=== PATIENT | female | born 1995 | race Caucasian/White ===

== ENCOUNTER 2017-09-18 15:38 | Emergency (ER) | payer BC ==
--- NOTE | 2017-09-18 15:55 | EDM.PDOC ---
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, here in the ed it was 98.0, BP 135.87 Pulse 104 RR 17 Pulse ox 100% on RA Onset: Sudden Onset Date: 09/16/17 Onset Time: 06:00 Duration: Day(s):, Intermittent Location: Reports: Generalized Quality: Reports: Ache, Same as Previous Episode Severity: Moderate Improves with: Reports: Medication Context: Reports: Sick Contact Associated Symptoms: Reports: Nausea/Vomiting head Pain Score (Numeric/FACES): 3 - Related Data Allergies Allergy/AdvReac Type Severity Reaction Status Date / Time No Known Allergies Allergy Verified 09/18/17 16:06 Home Meds: Home Meds Omeprazole 40 mg PO DAILY 09/18/17 [History] ED ROS GENERAL - Review of Systems Review Of Systems: See Below Constitutional: Reports: Decreased Appetite HEENT: Reports: No Symptoms Respiratory: Reports: No Symptoms Cardiovascular: Reports: No Symptoms Endocrine: Reports: No Symptoms GI/Abdominal: Reports: No Symptoms : Reports: No Symptoms Musculoskeletal: Reports: Muscle Pain (generalized) Skin: Reports: No Symptoms Neurological: Reports: No Symptoms Psychiatric: Reports: No Symptoms ED EXAM, GENERAL - Physical Exam Exam: See Below Exam Limited By: No Limitations General Appearance: Alert, WD/WN, No Apparent Distress Eye Exam: Bilateral Eye: Normal Inspection Ears: Normal External Exam, Normal Canal Ear Exam: Bilateral Ear: Auricle Normal Nose: Normal Inspection, Normal Mucosa Throat/Mouth: Normal Inspection, Normal Lips, Normal Teeth Head: Atraumatic, Normocephalic Neck: Normal Inspection, Supple, Non-Tender, Full Range of Motion Respiratory/Chest: No Respiratory Distress, Lungs Clear, Normal Breath Sounds Cardiovascular: Normal Peripheral Pulses, Regular Rate, Rhythm, No Edema, No Gallop, No JVD, No Murmur, No Rub Peripheral Pulses: 1+: Radial (R) GI/Abdominal: Normal Bowel Sounds, Soft, Non-Tender, No Organomegaly (Female) Exam: Deferred Rectal (Female) Exam: Deferred Back Exam: Normal Inspection, Full Range of Motion Extremities: Normal Inspection, Normal Range of Motion, Non-Tender, No Pedal Edema Neurological: Alert, Oriented, CN II-XII Intact, Normal Cognition, Normal Gait Psychiatric: Normal Affect, Normal Mood Skin Exam: Warm, Dry, Intact, Normal Color, No Rash Lymphatic: No Adenopathy Course - Vital Signs Text/Narrative:: 22 y.o.w.f came to the ed with her SO due gen bodyache, nausea, 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 Pt is nauseated PE: Nasal congestion, gen body ache. Labs: CBC/BMP WNL Influeza test neg Impression: Viral syndrome Tx: Mal Reexam: Improved Plan: D/C with instructions Last Recorded V/S: Last Vital Signs Temp 37.3 C 09/18/17 15:40 Pulse 104 H 09/18/17 15:40 Resp 17 09/18/17 15:40 BP 131/65 09/18/17 15:40 Pulse Ox 100 09/18/17 15:40 - Orders/Labs/Meds Labs: Laboratory Tests 09/18/17 09/18/17 09/18/17 Range/Units 16:10 16:10 16:40 WBC 10.3 (4.5-12.0) X10-3/uL RBC 5.69 H (3.23-5.20) x10(6)uL Hgb 15.1 (11.5-15.5) g/dL Hct 46.6 (30.0-51.3) % MCV 82.0 (80-96) fL MCH 26.6 L (27.7-33.6) pg MCHC 32.4 (32.2-35.4) g/dL RDW 12.8 (11.5-15.5) % Plt Count 293 (125-369) X10(3)uL MPV 8.6 (7.4-10.4) fL Neut % (Auto) 87.0 H (46-82) % Lymph % (Auto) 5.9 L (13-37) % [place] % (Auto) 3.4 L (4-12) % Eos % (Auto) 2 (1.0-5.0) % Baso % (Auto) 2 (0-2) % Neut # (Auto) 8.9 H (1.6-8.3) # Lymph # (Auto) 0.6 (0.6-5.0) # [place] # (Auto) 0.4 (0.0-1.3) # Eos # (Auto) 0.2 (0.0-0.8) # Baso # (Auto) 0.2 (0.0-0.2) # Sodium 142 (135-145) mmol/L Potassium 4.1 (3.5-5.3) mmol/L Chloride 104 (100-110) mmol/L Carbon Dioxide 27 (21-32) mmol/L BUN 10 (7-18) mg/dL Creatinine 0.8 (0.55-1.02) mg/dL Est Cr Clr Drug Dosing 96.86 mL/min Estimated GFR (MDRD) > 60 (>60) BUN/Creatinine Ratio 12.5 (9-20) Glucose 94 (80-116) mg/dL Calcium 8.9 (8.6-10.2) mg/dL Urine Color (YELLOW) Urine Appearance (CLEAR) Urine pH (5.0-6.5) Ur Specific [place] (1.010-1.025) Urine Protein (NEGATIVE) mg/dL Urine Glucose (UA) (NEGATIVE) mg/dL Urine Ketones (NEGATIVE) mg/dL Urine Occult Blood (NEGATIVE) Urine Nitrite (NEGATIVE) Urine Bilirubin (NEGATIVE) Urine Urobilinogen (NEGATIVE) mg/dL Ur Leukocyte Esterase (NEGATIVE) Urine RBC (0) Urine WBC (0) Ur Squamous Epith Cells (NS,R,O) Urine Bacteria (NS) Urine HCG, Qual Negative (NEGATIVE) 09/18/17 Range/Units 16:40 WBC (4.5-12.0) X10-3/uL RBC (3.23-5.20) x10(6)uL Hgb (11.5-15.5) g/dL Hct (30.0-51.3) % MCV (80-96) fL MCH (27.7-33.6) pg MCHC (32.2-35.4) g/dL RDW (11.5-15.5) % Plt Count (125-369) X10(3)uL MPV (7.4-10.4) fL Neut % (Auto) (46-82) % Lymph % (Auto) (13-37) % [place] % (Auto) (4-12) % Eos % (Auto) (1.0-5.0) % Baso % (Auto) (0-2) % Neut # (Auto) (1.6-8.3) # Lymph # (Auto) (0.6-5.0) # [place] # (Auto) (0.0-1.3) # Eos # (Auto) (0.0-0.8) # Baso # (Auto) (0.0-0.2) # Sodium (135-145) mmol/L Potassium (3.5-5.3) mmol/L Chloride (100-110) mmol/L Carbon Dioxide (21-32) mmol/L BUN (7-18) mg/dL Creatinine (0.55-1.02) mg/dL Est Cr Clr Drug Dosing mL/min Estimated GFR (MDRD) (>60) BUN/Creatinine Ratio (9-20) Glucose (80-116) mg/dL Calcium (8.6-10.2) mg/dL Urine Color Yellow (YELLOW) Urine Appearance Slightly cloudy (CLEAR) Urine pH 8.0 H (5.0-6.5) Ur Specific [place] 1.010 (1.010-1.025) Urine Protein Negative (NEGATIVE) mg/dL Urine Glucose (UA) Normal (NEGATIVE) mg/dL Urine Ketones Negative (NEGATIVE) mg/dL Urine Occult Blood Negative (NEGATIVE) Urine Nitrite Negative (NEGATIVE) Urine Bilirubin Negative (NEGATIVE) Urine Urobilinogen Normal (NEGATIVE) mg/dL Ur Leukocyte Esterase Negative (NEGATIVE) Urine RBC 0-5 (0) Urine WBC 0-5 (0) Ur Squamous Epith Cells Moderate H (NS,R,O) Urine Bacteria Few H (NS) Urine HCG, Qual (NEGATIVE) Meds: Medications Discontinued Medications Generic Name Dose Route Start Last Admin Trade Name Freq PRN Reason Stop Dose Admin Ondansetron HCl 8 mg 09/18/17 15:57 09/18/17 16:14 Zofran Odt PO 09/18/17 15:58 8 mg ONETIME ONE Administration Departure - Departure Time of Disposition: 17:29 Disposition: Home, Self-Care 01 Condition: Good Clinical Impression: Viral syndrome - Discharge Information Referrals: PCP,None [Primary Care Provider] - Forms: ED Department Discharge Additional Instructions: Please take zofran for N/V, please increase water intake, please take tylenol for temp above 100F, Please f/u. Please come back if your symptoms get worse acutely.
[2017-09-18] MEDS ORDERED: Ondansetron 8 MG Tab.DIS PO ONE (15:57)
[2017-09-18] MEDS ORDERED: Ondansetron 4 MG/2 ML SDV IVPUSH ONE (17:32)
== END 2017-09-18 17:40 | disposition home or self-care (01) ==
LOC: FB.ED 15:38
DX: B34.9 Viral infection, unspecified (principal); Z79.899 Other long term (current) drug therapy
CPT/HCPCS: 36415; 80048; 81001; 81025; 85025; 87804; 99283; A9270; J2405

== ENCOUNTER 2018-06-04 20:41 | Emergency (ER) | payer BC ==
[2018-06-04] MEDS ORDERED: Sodium Chloride 0.9% 1,000 ML IV ONE (21:18)
[2018-06-04] MEDS ORDERED: Ketorolac 30 MG/ML SDV IM ONE ×2 (21:18→21:19)
[2018-06-04] MEDS ORDERED: Ondansetron 4 MG/2 ML SDV IVPUSH ONE (21:20)
[2018-06-04] MEDS ORDERED: Pantoprazole 40 MG Vial IVPUSH ONE (21:22)
[2018-06-04] MEDS ORDERED: Pantoprazole 40 MG Vial ONE (22:10)
[2018-06-04] MEDS ORDERED: Ketorolac 30 MG/ML SDV IVPUSH ONE (22:17)
--- NOTE | 2018-06-04 23:25 | EDM.PDOC ---
ED HPI GENERAL MEDICAL PROBLEM - General Stated Complaint: CHEST AND BACK PAIN,VOMIT Time Seen by Provider: 06/04/18 20:50 Source of Information: Reports: Patient History Limitations: Reports: No Limitations - History of Present Illness INITIAL COMMENTS - FREE TEXT/NARRATIVE: Pleasant 23-year-old nulliparous woman who works at [employer] had crab legs and toast and potstickers at 4 PM and at 6 PM had ham and cheese sandwich for supper that was made at the intermediate. There is no mayonnaise on. At 8 PM she started vomiting 3 times in severe pain 10 out of 10. She never had pain like this before. Nothing made her pain get better. Vision present regimen for further evaluation. The pain is 6 out of 10. Nausea appears is moderate but the vomiting is related. Last menstrual period was 2 weeks ago is on her Mirena IUD for contraception. Family history significant significant for heart disease. Patient's not had history of acid peptic disease nor is she on PPI medication she's never had hepatitis or jaundice or history of fatty food intolerance?gallbladder disease symptoms. She is not certain why she experiences pain. She had this pain 2 years ago as extensive. Etiology for the pain at that time was indeterminate. 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 Social & Family History - Family History Family Medical History: Unobtainable - Caffeine Use Caffeine Use: Reports: Tea ED ROS GENERAL - Review of Systems Review Of Systems: See Below Constitutional: Reports: No Symptoms HEENT: Reports: No Symptoms Respiratory: Reports: No Symptoms Cardiovascular: Reports: No Symptoms Endocrine: Reports: No Symptoms GI/Abdominal: Reports: Abdominal Pain, Vomiting : Reports: No Symptoms Musculoskeletal: Reports: No Symptoms Skin: Reports: No Symptoms Neurological: Reports: No Symptoms Psychiatric: Reports: No Symptoms Hematologic/Lymphatic: Reports: No Symptoms Immunologic: Reports: No Symptoms ED EXAM, CPR - Physical Exam Exam: See Below Text/Narrative:: This 23-year-old had onset of severe vomiting 3 and the epigastric and right upper quadrant pain at 8 PM this evening after having eaten at 4 PM the legs post and potstickers and 6 PM and cheese sandwich. Limited By: No Limitations General Appearance: Alert, Severe Distress Eye Exam: Bilateral Eye: Normal Inspection Ears: Normal External Exam, Normal Canal, Hearing Grossly Normal Nose: Normal Inspection, Normal Mucosa Throat/Mouth: Normal Inspection, Normal Lips, Normal Teeth, Normal Gums, Normal Oropharynx, Normal Voice, No Airway Compromise Head: Atraumatic, Normocephalic Neck: Other (Thyromegaly) Respiratory Chest: No Respiratory Distress, Lungs Clear, Normal Breath Sounds, No Accessory Muscle Use, Chest Non-Tender Cardiovascular: Normal Pulse, Normal Peripheral Pulses, Regular Rate, Rhythm, No Edema, No Gallop, No JVD, No Murmur, No Rub GI/Abdominal Exam: Normal Bowel Sounds, No Organomegaly (Marked right upper quadrant tenderness and mid epigastric tenderness with marked guarding increased bowel sounds no distention no rebound no CVA tenderness with percussion), No Distention, No Abnormal Bruit, No Mass, Tender (Markedly tender right upper quadrant and mid epigastrium with marked guarding no rebound) 1+: Radial (R), Radial (L) Extremities: Normal Inspection, Normal Range of Motion, Non-Tender, No Pedal Edema, Normal Capillary Refill Skin Exam: Warm, Dry, Intact, Normal Color, No Rash Course - Orders/Labs/Meds Labs: Laboratory Tests 06/04/18 06/04/18 Range/Units 21:33 21:33 WBC 10.0 (4.5-12.0) X10-3/uL RBC 5.12 (3.23-5.20) x10(6)uL Hgb 14.0 (11.5-15.5) g/dL Hct 41.7 (30.0-51.3) % MCV 81.4 (80-96) fL MCH 27.3 L (27.7-33.6) pg MCHC 33.5 (32.2-35.4) g/dL RDW 12.4 (11.5-15.5) % Plt Count 295 (125-369) X10(3)uL MPV 8.3 (7.4-10.4) fL Neut % (Auto) 73.7 (46-82) % Lymph % (Auto) 18.9 (13-37) % [place] % (Auto) 5.2 (4-12) % Eos % (Auto) 2 (1.0-5.0) % Baso % (Auto) 1 (0-2) % Neut # (Auto) 7.3 (1.6-8.3) # Lymph # (Auto) 1.9 (0.6-5.0) # [place] # (Auto) 0.5 (0.0-1.3) # Eos # (Auto) 0.2 (0.0-0.8) # Baso # (Auto) 0.1 (0.0-0.2) # Sodium 142 (135-145) mmol/L Potassium 4.0 (3.5-5.3) mmol/L Chloride 105 (100-110) mmol/L Carbon Dioxide 29 (21-32) mmol/L BUN 13 (7-18) mg/dL Creatinine 0.9 (0.55-1.02) mg/dL Est Cr Clr Drug Dosing TNP Estimated GFR (MDRD) > 60 (>60) BUN/Creatinine Ratio 14.4 (9-20) Glucose 93 (80-116) mg/dL Calcium 8.6 (8.6-10.2) mg/dL Total Bilirubin 0.5 (0.1-1.3) mg/dL AST 78 H (5-25) IU/L ALT 61 H (12-36) U/L Alkaline Phosphatase 93 (56-112) IU/L Total Protein 7.8 (6.0-8.0) g/dL Albumin 3.8 (3.5-5.2) g/dL Globulin 4.0 g/dL Albumin/Globulin Ratio 1.0 Meds: Medications Discontinued Medications Generic Name Dose Route Start Last Admin Trade Name Freq PRN Reason Stop Dose Admin Sodium Chloride 1,000 mls @ 999 mls/hr 06/04/18 21:18 06/04/18 22:05 Normal Saline IV 06/04/18 22:18 999 mls/hr .BOLUS ONE Administration Ketorolac Tromethamine 30 mg 06/04/18 21:19 06/04/18 22:48 Toradol IM 06/04/18 21:20 Not Given ONETIME ONE Ketorolac Tromethamine 30 mg 06/04/18 22:17 06/04/18 22:47 Toradol IVPUSH 06/04/18 22:18 30 mg ONETIME ONE Administration Ondansetron HCl 4 mg 06/04/18 21:20 06/04/18 22:06 Zofran IVPUSH 06/04/18 21:21 4 mg ONETIME ONE Administration Pantoprazole Sodium 80 mg 06/04/18 21:22 06/04/18 22:13 Protonix Iv IVPUSH 06/04/18 21:23 80 mg .BOLUS ONE Administration Pantoprazole Sodium Confirm 06/04/18 22:10 06/04/18 22:15 Protonix Iv Administered 06/04/18 22:11 Not Given Dose 40 mg .ROUTE .STK-MED ONE Departure - Departure Time of Disposition: 23:15 Disposition: Home, Self-Care 01 Clinical Impression: Obesity (BMI 30-39.9) Abdominal pain Qualifiers: Abdominal location: right upper quadrant Qualified Code(s): R10.11 - Right upper quadrant pain GERD (gastroesophageal reflux disease) Qualifiers: Esophagitis presence: without esophagitis Qualified Code(s): K21.9 - Gastro- esophageal reflux disease without esophagitis - Discharge Information *PRESCRIPTION DRUG MONITORING PROGRAM REVIEWED*: Not Applicable *COPY OF PRESCRIPTION DRUG MONITORING REPORT IN PATIENT DEANNA: Not Applicable Instructions: Abdominal Pain, Adult, [id number] Referrals: PCP,None [Primary Care Provider] -
== END 2018-06-04 23:38 | disposition home or self-care (01) ==
LOC: FB.ED 20:41
DX: K21.9 Gastro-esophageal reflux disease without esophagitis (principal); E66.9 Obesity, unspecified; Z79.899 Other long term (current) drug therapy
CPT/HCPCS: 36415; 80053; 85025; 96361; 96374; 96375; 99284; C9113; J1885; J2405; J7030